=== PATIENT | female | born 1955 | race Caucasian/White ===

== ENCOUNTER 2024-03-06 20:12 | Inpatient (IN) ==
[2024-03-06 21:45] LABS: ABS Lymphocytes 0.6 10^3/uL (1.0-4.8); ABS Monocytes 0.4 10^3/uL (0.0-0.9); ABS Neutrophils 9.8 10^3/uL (1.5-7.6); ABS Nucleated RBC 0.01 10^3/ul; Hematocrit 33.4 % (35-45); Hemoglobin 11.8 g/dL (11.5-14.3); Lymphocyte % 5.4 %; Mean Corpuscular Hemoglobin 34.3 pg (27-33); Mean Corpuscular Hgb Conc 35.3 g/dL (31-36); Mean Corpuscular Volume 97.3 fL (80-97); Mean Platelet Volume 9.7 fL (7.5-11.2); Nucleated Red Blood Cells % 0.1 %/100WBC (0.0-0.8); Platelet Count 107 10^3/uL (150-450); Red Blood Count 3.43 10^6/uL (3.63-4.92); Red Cell Distribution Width 16.9 % (12-17); White Blood Count 10.8 10^3/uL (3.8-11.8)
[2024-03-06 21:58] LABS: INR 1.41 (0.83-1.13)
[2024-03-06] MEDS ORDERED: Zosyn per Pharmacy NOTE FOLLOW UP SCH (22:00)
[2024-03-06 22:34] LABS: Albumin 2.2 g/dL (3.2-5.2); Albumin/Globulin Ratio 0.7 (1-3); C Reactive Protein 125.38 mg/L (<8.01); Calcium 8.2 mg/dL (8.6-10.3); Creatinine, Serum 0.94 mg/dL (0.51-0.95); Globulin 3.3 g/dL (2-4); Magnesium 2.1 mg/dL (1.9-2.7); Phosphorus 4.3 mg/dL (2.5-5.0); Potassium 4.3 mmol/L (3.5-5.0); Total Bilirubin 1.1 mg/dL (0.2-1.0); Total Protein 5.5 g/dL (6.4-8.9); eGFR CKD-EPI 66.9 (>60)
[2024-03-06 22:48] LABS: TSH Ultra Thyroid Stim Horm 6.39 mcIU/mL (0.34-5.60)
[2024-03-06 22:50] LABS: Free T3 1.27 pg/mL (2.5-3.9); Free T4 1.28 ng/dL (0.61-1.12)
[2024-03-06 22:51] LABS: Osmolality Serum 262 mOsm/kg (275-295)
[2024-03-06 23:00] LABS: Erythrocyte Sed Rate 103 mm/Hr (0-29)
[2024-03-07] MEDS: Folic Acid IV 1 MG in NS 0.9% 50 ML 50 ML IV ONE (00:45)
[2024-03-07] MEDS: Pantoprazole VIAL 40 MG VIAL IV SCH ×3 (00:46→10:02)
[2024-03-07] MEDS: ZOSYN 3.375 GM Q8H per EXTENDED INFUSION IV SCH (03:03)
[2024-03-07 03:26] LABS: Urine Chloride Concentration < 22 mmol/L; Urine Potassium Concentration 71.1 mmol/L; Urine Sodium Concentration < 18 mmol/L
[2024-03-07] MEDS: HYDROmorphone 0.5 MG/0.5 ML SYRINGE IV SLOW PU PRN (03:52)
[2024-03-07] MEDS: Albumin Human 25% 25 GM/100 ML BTL IV ONE (04:03)
[2024-03-07] MEDS: Lactated Ringers 1000 ml BAG 1,000 ML IV ONE ×4 (04:54→15:26)
[2024-03-07] MEDS ORDERED: Albumin Human 25% 50 GM/200 ML BTL IV ONE (05:03)
[2024-03-07] MEDS ORDERED: Calcium CHLORIDE 10% SYRINGE 1 GM/10 ML ONE (05:04)
[2024-03-07] MEDS ORDERED: Etomidate 40 mg/20 ml (2 MG/ML) 20 ml VIAL (40 mg) ONE (05:04)
[2024-03-07] MEDS ORDERED: Bupivacaine 0.25% EPI 200,000 30 ML SDV ONE (05:07)
[2024-03-07] MEDS ORDERED: Rocuronium 50 mg VIAL 10 mg/ml 5 ml VIAL (50 mg) ONE ×2 (05:16→07:29)
[2024-03-07] MEDS ORDERED: Succinylcholine 200 mg VIAL 20 mg/ml 10 ml VIAL (200 mg) ONE (05:16)
[2024-03-07] MEDS ORDERED: Phenylephrine 40 mcg/mL 10mL (400mcg) SYRINGE ONE (05:16)
[2024-03-07] MEDS ORDERED: fentaNYL 250 mcg/5 ml 50 MCG/ML 5 ml VIAL (250 MCG) ONE ×2 (05:17→06:59)
[2024-03-07] MEDS: HYDROmorphone 0.5 MG/0.5 ML SYRINGE ONE (05:30)
[2024-03-07 05:32] LABS: Body Fluid Total Nucleated 16767 /mcL
[2024-03-07] MEDS: Levothyroxine 100 MCG/5 ML VIAL IV SCH (05:44)
[2024-03-07] MEDS ORDERED: Norepinephrine IV 1 MG/ML 4 ML VIAL ONE (05:48)
[2024-03-07 05:55] LABS: Body Fluid Appearance Cloudy; Body Fluid Color Yellow; Body Fluid Source Peritonial Fluid
[2024-03-07 06:20] LABS: Albumin 2.4 g/dL (3.2-5.2); Albumin/Globulin Ratio 0.9 (1-3); Calcium 8.2 mg/dL (8.6-10.3); Creatinine, Serum 1.23 mg/dL (0.51-0.95); Globulin 2.6 g/dL (2-4); Magnesium 1.9 mg/dL (1.9-2.7); Phosphorus 4.7 mg/dL (2.5-5.0); Potassium 4.2 mmol/L (3.5-5.0); eGFR CKD-EPI 48.5 (>60)
[2024-03-07 06:21] LABS: Hematocrit 28.4 % (35-45); Hemoglobin 10.3 g/dL (11.5-14.3); Mean Corpuscular Hemoglobin 35.2 pg (27-33); Mean Corpuscular Hgb Conc 36.1 g/dL (31-36); Mean Corpuscular Volume 97.4 fL (80-97); Red Blood Count 2.91 10^6/uL (3.63-4.92); Red Cell Distribution Width 16.9 % (12-17); White Blood Count 4.7 10^3/uL (3.8-11.8)
[2024-03-07] MEDS ORDERED: Midazolam 2 mg/2 ml VIAL 1 mg/ml 2 ml VIAL (2 mg) ONE ×3 (06:52→07:29)
[2024-03-07 07:18] LABS: Body Fluid Mono 8 %; Body Fluid Total Cells Counted 200
[2024-03-07] MEDS ORDERED: fentaNYL 100 mcg/2 ml 50 MCG/ML VIAL ONE (07:34)
[2024-03-07 07:38] LABS: ABS Lymphocytes 0.4 10^3/uL (1.0-4.8); ABS Monocytes 0.3 10^3/uL (0.0-0.9); ABS Nucleated RBC 0.01 10^3/ul; Eosinophil % 0.1 %; Lymphocyte % 7.9 %; Mean Platelet Volume 9.7 fL (7.5-11.2); Nucleated Red Blood Cells % 0.2 %/100WBC (0.0-0.8); Platelet Count 88 10^3/uL (150-450)
[2024-03-07] MEDS: Iodixanol (CONTRAST) 320 MG/ML 100 ML SDV IV ONE (07:40)
[2024-03-07] MEDS: Norepinephrine 4 MG/250mL D5W 4,000 MCG/250 ML BAG IV SCH (08:51)
[2024-03-07] MEDS: Propofol 10 mg/ml 100 ML BTL 1,000 MG/100 ML BTL IV SCH (08:58)
[2024-03-07] MEDS: Propofol 10 mg/ml 100 ML BTL 1,000 MG/100 ML BTL ONE (08:59)
[2024-03-07 09:19] LABS: PCO2 Arterial 45 mmHg (35-45); PO2 Arterial 164 mmHg (80-100)
[2024-03-07 09:28] LABS: INR 1.64 (0.83-1.13)
[2024-03-07] MEDS: Lactated Ringers 1000 ml BAG 1,000 ML IV SCH ×2 (09:52→14:29)
[2024-03-07 10:01] LABS: Albumin 2.5 g/dL (3.2-5.2); Albumin/Globulin Ratio 1.1 (1-3); Calcium 8.6 mg/dL (8.6-10.3); Creatinine, Serum 1.19 mg/dL (0.51-0.95); Globulin 2.3 g/dL (2-4); Magnesium 1.9 mg/dL (1.9-2.7); Potassium 4.5 mmol/L (3.5-5.0); Total Bilirubin 1.4 mg/dL (0.2-1.0); Total Protein 4.8 g/dL (6.4-8.9); eGFR CKD-EPI 50.4 (>60)
[2024-03-07 10:29] LABS: Hemoglobin 11.1 g/dL (11.5-14.3); Mean Corpuscular Hemoglobin 34.5 pg (27-33); Mean Corpuscular Hgb Conc 34.8 g/dL (31-36); Mean Platelet Volume 10.4 fL (7.5-11.2); Platelet Count 120 10^3/uL (150-450); Red Blood Count 3.23 10^6/uL (3.63-4.92); White Blood Count 9.8 10^3/uL (3.8-11.8)
[2024-03-07 10:32] LABS: ABS Lymphocytes 0.6 10^3/uL (1.0-4.8); ABS Monocytes 0.3 10^3/uL (0.0-0.9); ABS Neutrophils 8.8 10^3/uL (1.5-7.6); ABS Nucleated RBC 0.04 10^3/ul; Lymphocyte % 6.6 %; Nucleated Red Blood Cells % 0.4 %/100WBC (0.0-0.8)
[2024-03-07] MEDS: fentaNYL INFUSION 50 mcg/mL VL 2,500 MCG/50 ML VIAL IV SCH (10:32)
[2024-03-07 10:33] LABS: RBC Morphology Normal (Normal)
[2024-03-07] MEDS: Thiamine 100 MG/ML 2 ml VIAL 100 MG in NS 0.9% 50 ML 50 ML IV SCH (11:37)
[2024-03-07] MEDS: Chlorhexidine MOUTHWASH 0.12% 15 ML UDC TOPICAL SCH (11:52)
[2024-03-07] MEDS: Albumin Human 5% 25 GM/500 ML BTL IV ONE (12:18)
[2024-03-07 13:31] LABS: PCO2 Arterial 37 mmHg (35-45); PO2 Arterial 179 mmHg (80-100)
[2024-03-07] MEDS: Enoxaparin 40 MG/0.4 ML SYR SUBCUT SCH (14:12)
[2024-03-07 14:14] LABS: TSH Ultra Thyroid Stim Horm 7.74 mcIU/mL (0.34-5.60)
[2024-03-07 19:25] LABS: Hematocrit 29.2 % (35-45); Hemoglobin 10.4 g/dL (11.5-14.3); Mean Corpuscular Hemoglobin 34.6 pg (27-33); Mean Corpuscular Hgb Conc 35.7 g/dL (31-36); Mean Corpuscular Volume 96.8 fL (80-97); Mean Platelet Volume 9.8 fL (7.5-11.2); Platelet Count 124 10^3/uL (150-450); Red Blood Count 3.02 10^6/uL (3.63-4.92); Red Cell Distribution Width 16.5 % (12-17); White Blood Count 16.6 10^3/uL (3.8-11.8)
[2024-03-07 19:51] LABS: ABS Lymphocytes 0.9 10^3/uL (1.0-4.8); ABS Monocytes 0.5 10^3/uL (0.0-0.9); ABS Neutrophils 15.2 10^3/uL (1.5-7.6); Eosinophil % 0.2 %; Lymphocyte % 5.3 %; RBC Morphology Normal (Normal)
[2024-03-07 19:56] LABS: Calcium 8.2 mg/dL (8.6-10.3); Creatinine, Serum 1.53 mg/dL (0.51-0.95); Potassium 4.7 mmol/L (3.5-5.0); eGFR CKD-EPI 37.3 (>60)
[2024-03-08 04:33] LABS: Hematocrit 27.8 % (35-45); Hemoglobin 9.7 g/dL (11.5-14.3); Mean Corpuscular Hemoglobin 33.7 pg (27-33); Mean Corpuscular Hgb Conc 34.7 g/dL (31-36); Mean Corpuscular Volume 97.1 fL (80-97); Mean Platelet Volume 9.2 fL (7.5-11.2); Platelet Count 112 10^3/uL (150-450); Red Blood Count 2.87 10^6/uL (3.63-4.92); Red Cell Distribution Width 16.6 % (12-17); White Blood Count 14.3 10^3/uL (3.8-11.8)
[2024-03-08 04:54] LABS: ABS Basophils 0.1 10^3/uL (0.0-0.1); ABS Eosinophils 0.1 10^3/uL (0.0-0.5); ABS Lymphocytes 1.1 10^3/uL (1.0-4.8); ABS Monocytes 0.6 10^3/uL (0.0-0.9); ABS Neutrophils 12.5 10^3/uL (1.5-7.6); ABS Nucleated RBC 0.11 10^3/ul; Eosinophil % 0.6 %; Lymphocyte % 7.4 %; Nucleated Red Blood Cells % 0.8 %/100WBC (0.0-0.8)
[2024-03-08 04:55] LABS: RBC Morphology Normal (Normal)
[2024-03-08 05:19] LABS: Albumin 2.3 g/dL (3.2-5.2); Calcium 8.1 mg/dL (8.6-10.3); Creatinine, Serum 1.86 mg/dL (0.51-0.95); Globulin 2.2 g/dL (2-4); Magnesium 1.7 mg/dL (1.9-2.7); Phosphorus 4.9 mg/dL (2.5-5.0); Potassium 4.6 mmol/L (3.5-5.0); Total Bilirubin 1.1 mg/dL (0.2-1.0); Total Protein 4.5 g/dL (6.4-8.9); eGFR CKD-EPI 29.5 (>60)
[2024-03-08] MEDS: NS 0.9% 1000 ml BAG 1,000 ML IV SCH (08:31)
[2024-03-08] MEDS: Albumin Human 25% 25 GM/100 ML BTL IV SCH (09:41)
[2024-03-08] MEDS: Magnesium Sulfate 2 gm BAG 2 GM/50 ML BAG IVPB ONE (09:46)
[2024-03-08] MEDS: NS 0.9% 500 ml BAG 500 ML IV ONE (10:07)
[2024-03-08 12:02] LABS: Lactate Dehydrogenase, BF 568 U/L
[2024-03-08 12:30] LABS: Urine Appearance Turbid; Urine Bilirubin Negative (Negative); Urine Blood 2+ (Negative); Urine Color Yellow; Urine Glucose Negative (Negative); Urine Ketones Trace (Negative); Urine Nitrite Negative (Negative); Urine Protein 1+ (>=30 mg/dL) (Negative); Urine Specific Gravity 1.046 (1.002-1.030); Urine Urobilinogen Negative (Negative); Urine pH 5.5 (5.0-8.0)
[2024-03-08 12:45] LABS: Urine Osmo 259 mOsm/kg (150-1150)
[2024-03-08 13:40] LABS: Budding Yeast Present /HPF (Absent); Urine Bacteria Absent /HPF (Absent); Urine Red Blood Cell 3+(>10/hpf) /HPF (0-Trace); Urine Squamous Epithelial Cell Present /HPF (Absent); Urine White Blood Cell 1+(6-10/hpf) /HPF (0-Trace)
[2024-03-08 14:09] LABS: Fluid Type, Albumin PERITONEAL FLUID; Fluid Type, Protein, Total PERITONEAL FLUID; Total Protein, BF 1.9 g/dL
[2024-03-08] MEDS: Norepinephrine *QUAD STRENGTH* 16 mg/250 mL NS PREMIX (ICU ONLY) IV SCH (14:19)
[2024-03-08 14:24] LABS: Glucose, BF < 2 mg/dL
[2024-03-08] MEDS ORDERED: Sodium Chloride 0.9% 20 ML ONE (14:50)
[2024-03-08] MEDS ORDERED: Rocuronium 50 mg VIAL 10 mg/ml 5 ml VIAL (50 mg) ONE (14:53)
[2024-03-08 15:08] LABS: Creatinine, Serum 1.97 mg/dL (0.51-0.95); Potassium 4.2 mmol/L (3.5-5.0); eGFR CKD-EPI 27.5 (>60)
[2024-03-08] MEDS ORDERED: Midazolam 2 mg/2 ml VIAL 1 mg/ml 2 ml VIAL (2 mg) ONE (15:09)
[2024-03-08 15:19] LABS: HIV 4th Generation Nonreactive (Nonreactive)
[2024-03-08] MEDS: Albuterol/Ipratropium NEB.SOL (2.5/0.5 MG) 3 ML NEB.SOLN INH SCH (19:19)
[2024-03-08 19:34] LABS: Hepatitis B Surface Antigen Nonreactive (Nonreactive)
[2024-03-08 19:39] LABS: Hepatitis A Ab IgM Negative (Negative)
[2024-03-08 19:40] LABS: Hepatitis B Core IgM Nonreactive (Nonreactive)
[2024-03-08 19:52] LABS: Hepatitis C Antibody Negative (Negative)
[2024-03-09 00:23] LABS: PCO2 Arterial 55 mmHg (35-45); PO2 Arterial 124 mmHg (80-100)
[2024-03-09 00:24] LABS: ABS Eosinophils 0.1 10^3/uL (0.0-0.5); ABS Lymphocytes 0.8 10^3/uL (1.0-4.8); ABS Monocytes 0.1 10^3/uL (0.0-0.9); ABS Neutrophils 16.7 10^3/uL (1.5-7.6); ABS Nucleated RBC 0.02 10^3/ul; Eosinophil % 0.8 %; Hematocrit 23.9 % (35-45); Hemoglobin 8.4 g/dL (11.5-14.3); Lymphocyte % 4.5 %; Mean Corpuscular Hemoglobin 34.1 pg (27-33); Mean Corpuscular Hgb Conc 34.9 g/dL (31-36); Mean Corpuscular Volume 97.5 fL (80-97); Mean Platelet Volume 8.9 fL (7.5-11.2); Nucleated Red Blood Cells % 0.1 %/100WBC (0.0-0.8); Platelet Count 99 10^3/uL (150-450); Red Blood Count 2.46 10^6/uL (3.63-4.92); Red Cell Distribution Width 17.2 % (12-17); White Blood Count 17.8 10^3/uL (3.8-11.8)
[2024-03-09 01:04] LABS: Albumin 2.8 g/dL (3.2-5.2); Albumin/Globulin Ratio 1.5 (1-3); Calcium 7.7 mg/dL (8.6-10.3); Creatinine, Serum 2.32 mg/dL (0.51-0.95); Globulin 1.9 g/dL (2-4); Magnesium 2.2 mg/dL (1.9-2.7); Phosphorus 5.7 mg/dL (2.5-5.0); Potassium 4.4 mmol/L (3.5-5.0); Total Bilirubin 1.5 mg/dL (0.2-1.0); Total Protein 4.7 g/dL (6.4-8.9); eGFR CKD-EPI 22.6 (>60)
[2024-03-09] MEDS: NORMOSOL-R pH 7.4 1000 mL BAG 1,000 ML IV SCH (02:01)
[2024-03-09 02:12] LABS: PCO2 Arterial 37 mmHg (35-45); PO2 Arterial 121 mmHg (80-100)
[2024-03-09 06:03] LABS: PCO2 Arterial 29 mmHg (35-45); PO2 Arterial 140 mmHg (80-100)
[2024-03-09] MEDS: Norepinephrine 16 MG/250mL NS 16,000 MCG/250 ML BAG IV SCH (06:06)
[2024-03-09 07:20] LABS: ABS Basophils 0.1 10^3/uL (0.0-0.1); ABS Eosinophils 0.1 10^3/uL (0.0-0.5); ABS Lymphocytes 0.9 10^3/uL (1.0-4.8); ABS Monocytes 0.7 10^3/uL (0.0-0.9); ABS Neutrophils 12.4 10^3/uL (1.5-7.6); ABS Nucleated RBC 0.02 10^3/ul; Hematocrit 23.5 % (35-45); Hemoglobin 8.4 g/dL (11.5-14.3); Lymphocyte % 6.1 %; Mean Corpuscular Hemoglobin 34.4 pg (27-33); Mean Corpuscular Hgb Conc 35.8 g/dL (31-36); Mean Corpuscular Volume 95.9 fL (80-97); Mean Platelet Volume 9.3 fL (7.5-11.2); Nucleated Red Blood Cells % 0.2 %/100WBC (0.0-0.8); Platelet Count 92 10^3/uL (150-450); Red Blood Count 2.45 10^6/uL (3.63-4.92); Red Cell Distribution Width 16.4 % (12-17); White Blood Count 14.1 10^3/uL (3.8-11.8)
[2024-03-09 08:02] LABS: Albumin 2.5 g/dL (3.2-5.2); Albumin/Globulin Ratio 1.3 (1-3); Calcium 7.5 mg/dL (8.6-10.3); Creatinine, Serum 2.39 mg/dL (0.51-0.95); Globulin 1.9 g/dL (2-4); Magnesium 2.2 mg/dL (1.9-2.7); Phosphorus 4.7 mg/dL (2.5-5.0); Potassium 4.3 mmol/L (3.5-5.0); Total Bilirubin 1.6 mg/dL (0.2-1.0); Total Protein 4.4 g/dL (6.4-8.9); eGFR CKD-EPI 21.8 (>60)
[2024-03-09 08:15] LABS: PCO2 Arterial 28 mmHg (35-45); PO2 Arterial 117 mmHg (80-100)
[2024-03-09] MEDS ORDERED: NS 0.9% 1000 ml BAG 1,000 ML IV SCH (09:30)
[2024-03-09] MEDS: Sodium Bicarb 8.4% Vial 50 ML 150 MEQ in D5W 1000 ml BAG 1,000 ML IV SCH (10:55)
[2024-03-09] MEDS: Sodium Bicarb 8.4% Vial 50 ML 150 MEQ in D5W 1000 ml BAG 850 ML IV SCH (12:00)
[2024-03-09 13:10] LABS: PCO2 Arterial 30 mmHg (35-45); PO2 Arterial 146 mmHg (80-100)
[2024-03-09 14:11] LABS: Calcium 7.4 mg/dL (8.6-10.3); Creatinine, Serum 2.51 mg/dL (0.51-0.95); Potassium 4.1 mmol/L (3.5-5.0); eGFR CKD-EPI 20.6 (>60)
[2024-03-09] MEDS: Anidulafungin 200 MG in NS 0.9% 250 ml 200 ML IVPB ONE (15:27)
[2024-03-09] MEDS: Cefepime 2 GM in Dextrose 2 GM/50 ML BAG IV SCH (15:47)
[2024-03-09] MEDS: metroNIDAZOLE IV 500 MG/100ML 500 MG/100 ML BAG IVPB SCH (16:41)
[2024-03-09] MEDS: Sodium Bicarbonate 8.4% IV 150 MEQ in D5W 1000 ML BAG 850 ML IV SCH (19:33)
[2024-03-09] MEDS: Heparin 5000 UNITS/ML 1 mL VIAL SUBCUT SCH (22:36)
[2024-03-10 01:27] LABS: PCO2 Arterial 30 mmHg (35-45); PO2 Arterial 142 mmHg (80-100)
[2024-03-10 02:01] LABS: Albumin 2.8 g/dL (3.2-5.2); Albumin/Globulin Ratio 1.9 (1-3); Calcium 7.3 mg/dL (8.6-10.3); Creatinine, Serum 2.64 mg/dL (0.51-0.95); Globulin 1.5 g/dL (2-4); Phosphorus 4.1 mg/dL (2.5-5.0); Potassium 3.4 mmol/L (3.5-5.0); Total Bilirubin 1.9 mg/dL (0.2-1.0); Total Protein 4.3 g/dL (6.4-8.9); eGFR CKD-EPI 19.4 (>60)
[2024-03-10] MEDS: Sodium Bicarbonate 8.4% IV 150 MEQ in D5W 1000 ML BAG 850 ML IV SCH (03:29)
[2024-03-10 05:57] LABS: INR 1.79 (0.85-1.14)
[2024-03-10] MEDS: KCL 20 MEQ/100 ML IVPREMIX 20 MEQ/100 ML BAG IV SCH (06:07)
[2024-03-10 07:26] LABS: ABS Basophils 0.1 10^3/uL (0.0-0.1); ABS Eosinophils 0.1 10^3/uL (0.0-0.5); ABS Lymphocytes 0.5 10^3/uL (1.0-4.8); ABS Monocytes 0.4 10^3/uL (0.0-0.9); ABS Neutrophils 7.5 10^3/uL (1.5-7.6); ABS Nucleated RBC 0.01 10^3/ul; Eosinophil % 1.4 %; Hematocrit 20.5 % (35-45); Hemoglobin 7.3 g/dL (11.5-14.3); Lymphocyte % 5.9 %; Mean Corpuscular Hemoglobin 34.1 pg (27-33); Mean Corpuscular Hgb Conc 35.7 g/dL (31-36); Mean Corpuscular Volume 95.4 fL (80-97); Mean Platelet Volume 8.6 fL (7.5-11.2); Nucleated Red Blood Cells % 0.1 %/100WBC (0.0-0.8); Platelet Count 54 10^3/uL (150-450); Red Blood Count 2.15 10^6/uL (3.63-4.92); Red Cell Distribution Width 16.4 % (12-17); White Blood Count 8.6 10^3/uL (3.8-11.8)
[2024-03-10 13:43] LABS: ABS Basophils 0.1 10^3/uL (0.0-0.1); ABS Eosinophils 0.2 10^3/uL (0.0-0.5); ABS Lymphocytes 0.6 10^3/uL (1.0-4.8); ABS Monocytes 0.6 10^3/uL (0.0-0.9); ABS Neutrophils 7.4 10^3/uL (1.5-7.6); ABS Nucleated RBC 0.01 10^3/ul; Eosinophil % 1.8 %; Hematocrit 21.5 % (35-45); Hemoglobin 7.9 g/dL (11.5-14.3); Lymphocyte % 7.1 %; Mean Corpuscular Hemoglobin 34.9 pg (27-33); Mean Corpuscular Hgb Conc 36.5 g/dL (31-36); Mean Corpuscular Volume 95.5 fL (80-97); Mean Platelet Volume 8.6 fL (7.5-11.2); Nucleated Red Blood Cells % 0.1 %/100WBC (0.0-0.8); Platelet Count 48 10^3/uL (150-450); Red Blood Count 2.25 10^6/uL (3.63-4.92); Red Cell Distribution Width 16.2 % (12-17); White Blood Count 8.9 10^3/uL (3.8-11.8)
[2024-03-10] MEDS: Anidulafungin 100 MG in NS 0.9% 100 ml BAG 100 ML IVPB SCH (13:45)
[2024-03-10 13:53] LABS: Albumin 2.4 g/dL (3.2-5.2); Albumin/Globulin Ratio 1.5 (1-3); Creatinine, Serum 2.78 mg/dL (0.51-0.95); Globulin 1.6 g/dL (2-4); Magnesium 1.9 mg/dL (1.9-2.7); Phosphorus 3.9 mg/dL (2.5-5.0); Potassium 3.7 mmol/L (3.5-5.0); Total Bilirubin 1.8 mg/dL (0.2-1.0); eGFR CKD-EPI 18.2 (>60)
[2024-03-10 21:28] LABS: Calcium 7.1 mg/dL (8.6-10.3); Creatinine, Serum 2.85 mg/dL (0.51-0.95); Potassium 3.6 mmol/L (3.5-5.0); eGFR CKD-EPI 17.7 (>60)
[2024-03-11] MEDS: fentaNYL INFUSION 50 mcg/mL VL 2,500 MCG/50 ML VIAL IV SCH (00:07)
[2024-03-11] MEDS: Propofol 10 mg/ml 100 ML BTL 1,000 MG/100 ML BTL IV SCH (00:08)
[2024-03-11 01:01] LABS: Albumin 2.2 g/dL (3.2-5.2); Albumin/Globulin Ratio 1.2 (1-3); Calcium 6.9 mg/dL (8.6-10.3); Creatinine, Serum 2.9 mg/dL (0.51-0.95); Globulin 1.9 g/dL (2-4); Magnesium 1.8 mg/dL (1.9-2.7); Phosphorus 3.9 mg/dL (2.5-5.0); Potassium 3.5 mmol/L (3.5-5.0); Total Bilirubin 1.8 mg/dL (0.2-1.0); Total Protein 4.1 g/dL (6.4-8.9); eGFR CKD-EPI 17.3 (>60)
[2024-03-11 05:22] LABS: Hemoglobin 8.3 g/dL (11.5-14.3); INR 2.09 (0.85-1.14); Mean Corpuscular Hemoglobin 34.2 pg (27-33); Mean Corpuscular Hgb Conc 36.2 g/dL (31-36); Mean Corpuscular Volume 94.5 fL (80-97); Mean Platelet Volume 8.6 fL (7.5-11.2); Platelet Count 37 10^3/uL (150-450); Red Blood Count 2.43 10^6/uL (3.63-4.92); Red Cell Distribution Width 16.5 % (12-17); White Blood Count 8.8 10^3/uL (3.8-11.8)
[2024-03-11 05:23] LABS: ABS Eosinophils 0.2 10^3/uL (0.0-0.5); ABS Lymphocytes 0.7 10^3/uL (1.0-4.8); ABS Monocytes 0.5 10^3/uL (0.0-0.9); ABS Neutrophils 7.4 10^3/uL (1.5-7.6); ABS Nucleated RBC 0.01 10^3/ul; Eosinophil % 1.7 %; Lymphocyte % 7.7 %; Nucleated Red Blood Cells % 0.1 %/100WBC (0.0-0.8)
[2024-03-11 06:36] LABS: Hepatitis B Surface Ab Not Immune (Immune)
[2024-03-11] MEDS: Magnesium Sulfate 2 gm BAG 2 GM/50 ML BAG IVPB ONE (07:42)
[2024-03-11] MEDS: KCL 20 MEQ/100 ML IVPREMIX 20 MEQ/100 ML BAG IV ONE (07:42)
[2024-03-11] MEDS ORDERED: Albuterol/Ipratropium NEB.SOL (2.5/0.5 MG) 3 ML NEB.SOLN INH PRN (08:39)
[2024-03-11] MEDS: Norepinephrine 4 MG/250mL D5W 4,000 MCG/250 ML BAG IV ONE ×2 (09:17→15:12)
[2024-03-11] MEDS: PHENYLEPHRINE DRIP IVPREMIX 50 MG/250 ML BAG IV SCH (11:18)
[2024-03-11] MEDS ORDERED: Propofol 10 MG/ML 20 ML BTL ONE (11:37)
[2024-03-11] MEDS ORDERED: Rocuronium 50 mg VIAL 10 mg/ml 5 ml VIAL (50 mg) ONE (11:38)
[2024-03-11] MEDS ORDERED: Midazolam 2 mg/2 ml VIAL 1 mg/ml 2 ml VIAL (2 mg) ONE (12:17)
[2024-03-11 12:33] LABS: Albumin 2.3 g/dL (3.2-5.2); Calcium 7.1 mg/dL (8.6-10.3); Creatinine, Serum 3.05 mg/dL (0.51-0.95); Globulin 2.2 g/dL (2-4); Magnesium 2.4 mg/dL (1.9-2.7); Phosphorus 4.3 mg/dL (2.5-5.0); Total Protein 4.5 g/dL (6.4-8.9); eGFR CKD-EPI 16.3 (>60)
[2024-03-11] MEDS ORDERED: Phenylephrine 40 mcg/mL 10mL (400mcg) SYRINGE ONE (14:14)
[2024-03-11] MEDS: Buffered Lidocaine 1% SYRIN 1 ml INTRADERM ONE (15:09)
[2024-03-11] MEDS: Scopolamine 1 mg/72hr PATCH TRANSDERM ONE (15:12)
[2024-03-11] MEDS: Lactated Ringers 1000 ml BAG 1,000 ML IV SCH (15:13)
[2024-03-11] MEDS ORDERED: Dextrose 50% VIAL 50 ml IV PRN (15:17)
[2024-03-11] MEDS: VASOPRESSIN IVPREMIX BTL 40 UNIT/100 ML BTL IV SCH (15:30)
[2024-03-11] MEDS: VASOPRESSIN IVPREMIX BTL 40 UNIT/100 ML BTL IV ONE (15:55)
[2024-03-11] MEDS: TPN 24 HR with Dextrose 40% Water 625 ML, Amino Acid Infusion 10% 850 ML, Sterile Water... CENT\\PICC SCH (17:29)
[2024-03-12 05:34] LABS: Hematocrit 22.8 % (35-45); Hemoglobin 8.5 g/dL (11.5-14.3); Mean Corpuscular Hemoglobin 35.8 pg (27-33); Mean Corpuscular Volume 96.8 fL (80-97); Red Blood Count 2.36 10^6/uL (3.63-4.92); Red Cell Distribution Width 16.6 % (12-17); White Blood Count 13.4 10^3/uL (3.8-11.8)
[2024-03-12 05:57] LABS: AST 34 U/L (13-39); Magnesium 2.1 mg/dL (1.9-2.7); Potassium 4.3 mmol/L (3.5-5.0)
[2024-03-12 05:58] LABS: ALT 8 U/L (7-52); Anion Gap 16 mmol/L (2-16); Blood Urea Nitrogen 26 mg/dL (6-24); CO2 Carbon Dioxide 19 mmol/L (22-32); Calcium 7.1 mg/dL (8.6-10.3); Chloride 86 mmol/L (101-111); Creatinine, Serum 3.27 mg/dL (0.51-0.95); Glucose 155 mg/dL (70-100); Phosphorus 4.9 mg/dL (2.5-5.0); Sodium 121 mmol/L (135-145)
[2024-03-12 05:59] LABS: Albumin/Globulin Ratio 0.9 (1-3); Alkaline Phosphatase 68 U/L (35-149); Cholesterol 61 mg/dL; Globulin 2.2 g/dL (2-4); Prealbumin < 3 mg/dL (18-38); Total Bilirubin 1.6 mg/dL (0.2-1.0); Total Protein 4.2 g/dL (6.4-8.9); Triglycerides 418 mg/dL
[2024-03-12 09:02] LABS: Mean Platelet Volume 9.7 fL (7.5-11.2); Platelet Count 37 10^3/uL (150-450)
[2024-03-12 09:03] LABS: ABS Eosinophils 0.3 10^3/uL (0.0-0.5); ABS Lymphocytes 0.8 10^3/uL (1.0-4.8); ABS Monocytes 0.1 10^3/uL (0.0-0.9); ABS Neutrophils 12.2 10^3/uL (1.5-7.6); ABS Nucleated RBC 0.03 10^3/ul; Eosinophil % 2.3 %; Lymphocyte % 5.8 %; Nucleated Red Blood Cells % 0.3 %/100WBC (0.0-0.8); RBC Morphology Normal (Normal); Toxic Granulation 2+
[2024-03-12] MEDS: Hydrocortisone INJ 100 MG/2ML 2 ML VIAL IV ONE (13:58)
[2024-03-12] MEDS: TPN 24 HR with Dextrose 40% Water 625 ML, Amino Acid Infusion 10% 850 ML, Sterile Water... CENT\\PICC SCH (17:39)
[2024-03-12] MEDS: Acetaminophen IV 1 GM/100ML 1,000 MG/100 ML BAG IV PRN (22:41)
[2024-03-12] MEDS: Hydrocortisone INJ 100 MG/2ML 2 ML VIAL IV SCH (22:41)
[2024-03-13 08:10] LABS: ABS Basophils 0.3 10^3/uL (0.0-0.1); ABS Monocytes 0.9 10^3/uL (0.0-0.9); ABS Neutrophils 21.3 10^3/uL (1.5-7.6); ABS Nucleated RBC 0.02 10^3/ul; Hematocrit 23.2 % (35-45); Hemoglobin 7.9 g/dL (11.5-14.3); Lymphocyte % 8.2 %; Mean Corpuscular Hemoglobin 33.2 pg (27-33); Mean Corpuscular Hgb Conc 34.2 g/dL (31-36); Mean Corpuscular Volume 97.3 fL (80-97); Mean Platelet Volume 10.1 fL (7.5-11.2); Nucleated Red Blood Cells % 0.1 %/100WBC (0.0-0.8); Platelet Count 38 10^3/uL (150-450); Red Blood Count 2.38 10^6/uL (3.63-4.92); Red Cell Distribution Width 16.8 % (12-17); White Blood Count 24.5 10^3/uL (3.8-11.8)
[2024-03-13 08:33] LABS: ALT 12 U/L (7-52); AST 89 U/L (13-39); Albumin 1.8 g/dL (3.2-5.2); Albumin/Globulin Ratio 0.7 (1-3); Alkaline Phosphatase 85 U/L (35-149); Anion Gap 11 mmol/L (2-16); Blood Urea Nitrogen 32 mg/dL (6-24); CO2 Carbon Dioxide 20 mmol/L (22-32); Calcium 7.3 mg/dL (8.6-10.3); Chloride 90 mmol/L (101-111); Cholesterol 54 mg/dL; Creatinine, Serum 3.65 mg/dL (0.51-0.95); Globulin 2.6 g/dL (2-4); Glucose 116 mg/dL (70-100); Magnesium 2.2 mg/dL (1.9-2.7); Phosphorus 6.3 mg/dL (2.5-5.0); Prealbumin < 3 mg/dL (18-38); Sodium 121 mmol/L (135-145); Total Bilirubin 1.7 mg/dL (0.2-1.0); Total Protein 4.4 g/dL (6.4-8.9); Triglycerides 83 mg/dL; eGFR CKD-EPI 13.1 (>60)
[2024-03-13] MEDS ORDERED: Dextrose 50% Syringe 50 ml 25 GM/50 ML SYRINGE IV PUSH PRN (09:22)
[2024-03-13] MEDS: Dextrose 50% VIAL 50 ml IV ONE (09:50)
[2024-03-13 10:27] VITALS: BP 101/53
[2024-03-13 11:18] LABS: INR 3.39 (0.85-1.14)
[2024-03-13 12:25] LABS: Calcium 7.3 mg/dL (8.6-10.3); Creatinine, Serum 3.79 mg/dL (0.51-0.95); Potassium 5.9 mmol/L (3.5-5.0); eGFR CKD-EPI 12.6 (>60)
[2024-03-13] MEDS ORDERED: Lorazepam PYXIS KEY PRN ×2 (13:36→13:50)
[2024-03-13] MEDS ORDERED: LORazepam 2 mg VIAL 1 ml IV PUSH PRN (13:36)
[2024-03-13] MEDS: LORazepam 2 mg VIAL 1 ml ONE (13:44)
[2024-03-13] MEDS: fentaNYL INFUSION 50 mcg/mL VL 2,500 MCG/50 ML VIAL IV SCH (13:44)
[2024-03-13] MEDS: LORazepam 2 mg VIAL 1 ml IV PUSH ONE (13:44)
== END 2024-03-13 13:52 | disposition expired | DRG 329 ==
LOC: ICU 21:10
PROVIDERS: ADMIT Internal Medicine; ATTEND Internal Medicine Critical Care Medicine